=== PATIENT | female | born 1990 | race Hispanic/Latino ===

== ENCOUNTER 2017-12-02 11:57 | Inpatient (IN) | payer MEDICAID ==
--- NOTE | 2017-12-02 12:53 | C.PDOC ---
History Of Present Illness 27 y/o female presents to ED requesting detox from ETOH. Patient reports last use was 4am this morning and denies SI/HI, Hallucinations or any other physical complaints at this time. Time Seen by Provider: 12/02/17 12:16 Chief Complaint (Nursing): Substance Abuse History Per: Patient History/Exam Limitations: no limitations Onset/Duration Of Symptoms: Days Current Symptoms Are (Timing): Still Present Suicide/Self Injury Attempted (Context): None Modifying Factor(s): Alcohol Past Medical History Reviewed: Historical Data, Nursing Documentation, Vital Signs Vital Signs: Last Vital Signs Temp 98.5 F 12/02/17 15:46 Pulse 87 12/02/17 15:46 Resp 18 12/02/17 15:46 BP 133/85 12/02/17 15:46 Pulse Ox 94 L 12/02/17 18:10 - Medical History PMH: Anxiety, Depression, Gastritis Surgical History: Appendectomy Family History: States: No Known Family Hx - Social History Hx Alcohol Use: Yes Hx Substance Use: No - Immunization History Hx Tetanus Toxoid Vaccination: Yes (<10 years) Hx Influenza Vaccination: Yes Hx Pneumococcal Vaccination: Yes Review Of Systems Constitutional: Negative for: Fever, Chills Cardiovascular: Negative for: Chest Pain Respiratory: Negative for: Shortness of Breath Skin: Negative for: Rash Psych: Positive for: Other (substance abuse). Negative for: Suicidal ideation, Withdrawal Physical Exam - Physical Exam Appears: Non-toxic, Other (tearful) Skin: Warm, Dry, No Rash Head: Atraumatic, Normacephalic Eye(s): bilateral: Normal Inspection Oral Mucosa: Moist Cardiovascular: Rhythm Regular Respiratory: Normal Breath Sounds, No Rales, No Rhonchi, No Wheezing Gastrointestinal/Abdominal: Soft, No Tenderness, No Guarding, No Rebound Extremity: Normal ROM, Capillary Refill (<2 seconds) Neurological/Psych: Oriented x3, Normal Speech, Normal Cognition ED Course And Treatment - Laboratory Results Result Diagrams: 12/02/17 12:51 12/02/17 12:51 Lab Interpretation: Normal Urine POC: Negative O2 Sat by Pulse Oximetry: 94 (RA) Pulse Ox Interpretation: Normal Progress Note: Patient is pre screened for detox admission. Case discussed and patient evaluated by crisis who will re-evaluate after 9 PM due to ETOH level. Patient treated with zofran and ativan. sleeping in no distress Reassessment Condition: Unchanged Disposition Doctor Will See Patient In The: Hospital - Disposition Disposition: HOME/ ROUTINE Disposition Time: 19:00 Condition: STABLE Forms: [facility] (Yoruba) - POA Present On Arrival: None - Clinical Impression Clinical Impression: Alcohol abuse - PA / FAMILY CONSULTANT / Resident Statement MD/DO has reviewed & agrees with the documentation as recorded. - Scribe Statement The provider has reviewed the documentation as recorded by the Scribchip Tafoya All medical record entries made by the Tashiibchip were at my direction and personally dictated by me. I have reviewed the chart and agree that the record accurately reflects my personal performance of the history, physical exam, medical decision making, and the department course for this patient. I have also personally directed, reviewed, and agree with the discharge instructions and disposition. Physician Patient Turnover Patient Signed Over To: Daisy Leal Handoff Comments: pending clearance from ETOH
[2017-12-02 12:57] LABS: BASO % 0.7 % (0.0-2.0); EOS % 0.5 % (0.0-4.0); HEMOGLOBIN 14.5 g/dL (11.0-16.0); LYMPH # 4.4 K/uL (1.0-4.3); LYMPH % 63.6 % (20.0-40.0); MEAN CELL VOLUME 93.7 fL (81.0-99.0); MEAN CORPUSCULAR HEMOGLOBIN 32.9 pg (27.0-31.0); MEAN CORPUSCULAR HGB CONC 35.1 g/dL (33.0-37.0); MEAN PLATELET VOLUME 7.2 fL (7.2-11.7); MONO # 0.7 K/uL (0.0-0.8); MONO % 9.6 % (0.0-10.0); NEUT # 1.8 K/uL (1.8-7.0); NEUT % 25.6 % (50.0-75.0); NRBC % 0.1 % (0.0-2.0); RBC 4.42 Mil/uL (3.80-5.20); RED CELL DISTRIBUTION WIDTH 14.2 % (11.5-14.5)
[2017-12-02 13:10] LABS: URINE BILIRUBIN NEGATIVE (NEGATIVE); URINE BLOOD NEGATIVE (NEGATIVE); URINE CLARITY Clear (Clear); URINE COLOR YELLOW (YELLOW); URINE GLUCOSE (UA) NEGATIVE (Normal); URINE LEUKOCYTE ESTERASE NEGATIVE Leu/uL (Negative); URINE PROTEIN NEGATIVE (NEGATIVE); URINE UROBILINOGEN 0.2 mg/dL (0.2-1.0)
[2017-12-02 13:11] LABS: ALB/GLOB RATIO 1.4 (1.0-2.1); ALBUMIN 4.5 g/dL (3.5-5.0); ALT/SGPT 35 U/L (9-52); AST/SGOT 45 U/L (14-36); BLOOD UREA NITROGEN 14 mg/dL (7-17); CALCIUM 9.1 mg/dl (8.6-10.4); GFR NON-AFRICAN AMERICAN > 60
[2017-12-02 13:24] LABS: BARBITURATES, UR NEGATIVE (NEGATIVE); OPIATES, UR NEGATIVE (NEGATIVE); PHENCYCLIDINE, UR NEGATIVE (NEGATIVE)
[2017-12-02 13:41] LABS: BENZODIAZEPINES, UR POSITIVE (NEGATIVE)
--- NOTE | 2017-12-03 06:38 | PCM.BM ---
<Veronika Valero - Last Filed: 12/03/17 06:37> Treatment Plan Problems - Problems identified on initial assessmt Alcohol Dependence Date Initiated: 12/03/17 Time Initiated: 06:37 Assessment reference: NA Status: Active Treatment assets and liabiliti Patient Assests: cooperative, ADL independent, good support system - Milieu Protocol Maintain good personal hygiene: daily Encourage regular showers, daily Remind patient to perform daily oral care, daily Assist patient to perform ADL's Maintain personal safety: every shift Educate patient to report safety concerns to staff, every shift Monitor environment for contraband/sharps Medication safety: Monitor for expected outcome, potential side effects: every shift, Assess barriers to learning: every shift, Assess readiness for medication education: every shift <Meka Lazcano - Last Filed: 12/04/17 14:18> - Diagnosis (1) Alcohol use disorder, severe, dependence Status: Acute Interventions: 12/03/17 14:18 * Assess 7x/week regarding severity of withdrawal * Educate regarding risks, benefits, side effects and alternatives of medications * Use Motivational Interviewing for abstinence * Use CBT for relapse prevention * Medication management for withdrawal symptoms * Encourage medication assisted treatment *
[2017-12-03] MEDS: Multiple Vitamins Tab PO SCH (09:52)
[2017-12-03] MEDS: Aluminum Hydroxide/Magnesium Hydroxide Susp (30 mL) PO PRN (10:18)
[2017-12-03] MEDS: Pantoprazole 40 mg EC Tab PO SCH (10:44)
[2017-12-03] MEDS ORDERED: Vitamins A & D Oint UD Foilpak TOP PRN (16:44)
[2017-12-04] MEDS: Pantoprazole 40 mg EC Tab PO SCH (10:36)
[2017-12-04] MEDS: Multiple Vitamins Tab PO SCH (10:37)
--- NOTE | 2017-12-04 11:28 | PCM.PSYCH ---
Initial Psychiatric Evaluation - Initial Psychiatric Evaluation Type of Admission: Voluntary Legal Status: Capacity Chief Complaint (in patient's own words): "i needed detox" History of Present Illness and Precipitating Events: The patient is seen, chart reviewed and case discussed. Neck signed this is a 27 -year-old female, single with no child, lives with his her around in [place]. She is currently unemployed. The patient has been using alcohol for 10 years and had one detox in the past in [place] 2 years ago. Her longest sobriety was 2 months. She drinks "tons of vodka and 3 glasses of wine" She had blackouts in the past and DT-like symptoms but no seizures. She denies drug and marijuana use and she is not a smoker. Past psych history: He denies but currently she feels depressed and anxious. Medical: He she was diagnosed with high blood pressure but not on medications Family psych history: Denies Current Medications: Active Medications Generic Name Dose Route Start Last Admin Trade Name Freq PRN Reason Stop Dose Admin Acetaminophen 650 mg 12/03/17 12:35 12/03/17 12:50 Tylenol 325mg Tab PO 650 mg Q6 PRN Administration Pain, moderate (4-7) Al Hydrox/Mg Hydrox/Simethicone 30 ml 12/03/17 09:59 12/03/17 10:18 Maalox 30 Ml PO 30 ml Q6 PRN Administration Indigestion / Heartburn Chlordiazepoxide 25 mg 12/03/17 00:22 12/03/17 10:44 Librium PO 25 mg Q4 PRN Administration alcohol withdrawal Chlordiazepoxide 25 mg 12/03/17 10:00 12/04/17 10:37 Librium PO 12/08/17 09:59 25 mg Q6H MANUELA Administration Taper Clonidine HCl 0.1 mg 12/03/17 00:19 12/03/17 02:31 Catapres PO 0.1 mg Q6 PRN Administration withdrawal symptoms Folic Acid 1 mg 12/03/17 10:00 12/04/17 10:37 Folic Acid PO 1 mg DAILY MANUELA Administration Hydroxyzine HCl 50 mg 12/03/17 09:41 12/03/17 12:50 Atarax PO 50 mg Q6H PRN Administration Anxiety Multivitamins 1 tab 12/03/17 10:00 12/04/17 10:37 Hexavitamin PO 1 tab DAILY MANUELA Administration Ondansetron HCl 4 mg 12/03/17 00:21 12/03/17 00:41 Zofran Tab PO 4 mg Q6 PRN Administration Nausea/Vomiting Pantoprazole Sodium 40 mg 12/03/17 10:30 12/04/17 10:36 Protonix Ec Tab PO 40 mg DAILY MANUELA Administration Thiamine HCl 100 mg 12/03/17 10:00 12/04/17 10:38 Vitamin B1 Tab PO 100 mg DAILY MANUELA Administration Trazodone HCl 100 mg 12/03/17 09:41 12/03/17 21:17 Desyrel PO 100 mg HS PRN Administration Insomnia Vitamin A 1 ea 12/03/17 16:44 12/03/17 20:53 Vitamin A & D Oint Ud Foilpak TOP 1 ea BID PRN Administration dry lips Past Psychiatric History - Past Psychiatric History Previous Treatment History: None Pertinent Medical Hx (Current Medical&Sleep Prob, Allergies): Allergies Allergy/AdvReac Type Severity Reaction Status Date / Time No Known Allergies Allergy Verified 11/28/17 11:45 No Known Home Med 12/02/17 Review of Systems - Psychiatric Psychiatric: Abnormal Sleep Pattern, Anhedonia, Anxiety, Depression, Difficulty Concentrating. absent: Hallucinations, Homicidal Ideation, Paranoia, Suicidal Ideation Mental Status Examination - Personal Presentation Personal Presentation: Looks stated age - Affect Affect: Constricted - Motor Activity Motor Activity: Calm - Reliability in Providing Information Reliability in Providing Information: Good - Speech Speech: Organized - Mood Mood: Depressed, Anxious - Formal Thought Process Formal Thought Process: No Impairment - Cognitive Functions Orientation: Person, Place, Situation, Time Sensorium: Alert Attention/Concentration: Easily distracted Estimate of Intelligence: Average Judgement: Intact, as evidence by: Insight regarding need for hospitalization Memory: Recent intact, as evidence by: Ability to recall events of the day, Remote intact, as evidenced by: Abilit to recall sig. life events - Risk Risk: Withdrawal, Diminished functioning - Strength & Assets Inventory Strength & Assets Inventory: Family support, Cooperative - Limitations Limitations: Other DSM 5 DX - DSM 5 DSM 5 Diagnosis: Alcohol withdrawal Alcohol use disorder, severe Depressive disorder, unspecified Anxiety disorder, unspecified - Recommended/Plan of Treatment Treatment Recommendations and Plan of Treatment: Start librium taper Naltrexone for cravings Remeron for insomnia and depressive sxs gabapentin if needed As need medications All risks, benefits and alternatives of the meds discussed, and the pt agreed and understood. Attend groups and activities Individual therapy daily, incl. [place] and CBT Psychoeducation and support daily Encourage compliance with meds and after care Refer to outpatient program Teach healthy lifestyle methods, i.e. diet, exercise, meditation Smoking cessation and patch if needed 32 min Projected ELOS: 4-5 days Prognosis: good w insurance - Smoking Cessation Smoking Cessation Initiated: No
[2017-12-04] MEDS ORDERED: Naltrexone 25 MG TAB PO SCH (11:30)
--- NOTE | 2017-12-04 11:37 | PCM.PYCHPN ---
Psychiatric Progress Note - Psychiatric Progress Note Patient seen today, length of contact: 15 min Patient Chief Complaint: "I don't feel well yet" Problems Identified/Issues Discussed: The pt is seen, chart reviewed, case discussed with staff. The pt is compliant with medications and reports no side-effects. Symptoms are improving but needs more time to stabilize. Pt attends groups and activities. Support given, psycho-education provided. After care discussed. Medication Change: Yes (detox changes daily) Medical Record Reviewed: Yes Mental Status Examination - Cognitive Function Orientation: Person, Place, Situation, Time Memory: Intact Attention: WNL Concentration: WNL Association: WNL Fund of Knowledge: WN - Mood Mood: Depressed, Anxious - Affect Affect: Constricted - Speech Speech: Appropriate - Formal Thought Process Formal Thought Process: No Impairment - Suicidal Ideation Suicidal Ideation: No - Homicidal Ideation Homicidal Ideation: No Goal/Treatment Plan - Goal/Treatment Plan Need for Continued Stay: Discharge may exacerbated symptoms, Severe functional impairment Progress Toward Problem(s) and Goals/Treatment Plan: librium taper Naltrexone for cravings Remeron for insomnia and depressive sxs gabapentin if needed As need medications All risks, benefits and alternatives of the meds discussed, and the pt agreed and understood. Attend groups and activities Individual therapy daily, incl. [place] and CBT Psychoeducation and support daily Encourage compliance with meds and after care Refer to outpatient program Teach healthy lifestyle methods, i.e. diet, exercise, meditation Smoking cessation and patch if needed Estimated Date of D/C: 12/07/17
--- NOTE | 2017-12-04 11:37 | CP.PCM.PCO ---
Physician Communication Note - Physician Communication Note Physician Communication Note: PATIENT'S INTAKE NOTE FOR 12/03 IS ENTERED INTO EMR ON 12/04
[2017-12-04] MEDS: Aluminum Hydroxide/Magnesium Hydroxide Susp (30 mL) PO PRN (14:14)
[2017-12-05] MEDS: Multiple Vitamins Tab PO SCH (09:30)
[2017-12-05] MEDS: Pantoprazole 40 mg EC Tab PO SCH (09:30)
[2017-12-05] MEDS: Naltrexone 50 MG TAB PO SCH (09:33)
--- NOTE | 2017-12-05 11:17 | PCM.PYCHPN ---
Psychiatric Progress Note - Psychiatric Progress Note Patient seen today, length of contact: 15 min Patient Chief Complaint: "I can't sleep" Problems Identified/Issues Discussed: The pt is seen, chart reviewed, case discussed with staff. Support and psychoeducation given, CBT and MA used briefly No new symptoms reported, improving slowly and needs more time She is so anxious that she wanted to leave Insomnia is improving actually Librium taper is adjusted bc she feels over-sedated at times No SEs from medications, risks discussed. After care discussed Medication Change: Yes (detox changes daily) Medical Record Reviewed: Yes Mental Status Examination - Cognitive Function Orientation: Person, Place, Situation, Time Memory: Intact Attention: WNL Concentration: WNL Association: WNL Fund of Knowledge: WNL - Mood Mood: Depressed, Anxious - Affect Affect: Constricted - Speech Speech: Appropriate - Formal Thought Process Formal Thought Process: No Impairment - Suicidal Ideation Suicidal Ideation: No - Homicidal Ideation Homicidal Ideation: No Goal/Treatment Plan - Goal/Treatment Plan Need for Continued Stay: Discharge may exacerbated symptoms, Severe functional impairment Progress Toward Problem(s) and Goals/Treatment Plan: librium taper Naltrexone for cravings Remeron for insomnia and depressive sxs gabapentin if needed As need medications All risks, benefits and alternatives of the meds discussed, and the pt agreed and understood. Attend groups and activities Individual therapy daily, incl. [place] and CBT Psychoeducation and support daily Encourage compliance with meds and after care Refer to outpatient program Teach healthy lifestyle methods, i.e. diet, exercise, meditation Smoking cessation and patch if needed Estimated Date of D/C: 12/06/17 If changed, why: she wants to be home earlier
[2017-12-06 08:20] VITALS: BP 125/81; PULSE 81; RESP 18; TEMP 97.5; O2SAT 99
[2017-12-06] MEDS: Pantoprazole 40 mg EC Tab PO SCH (09:11)
[2017-12-06] MEDS: Multiple Vitamins Tab PO SCH (09:11)
[2017-12-06] MEDS: Naltrexone 50 MG TAB PO SCH (09:11)
--- NOTE | 2017-12-06 09:29 | PCM.PYCHDC ---
Mental Status Examination - Mental Status Examination Orientation: Person Discharge Summary - Discharge Note Consultations:: List each consultation separately and include: 1. Reason for request. 2. Findings. 3. Follow-up Summary of Hospital Course include:: 1. Description of specific treatment plan utilized for patients during their course of treatmen. 2. Summarize the time- course for resolution of acute symptoms and/or regressed behaviors. 3. Describe issues identified and worked on during hospitalization. 4. Describe medication utilized. 5. Describe medical problems identified and treated. 6. Reassessment of suicide risk Summary of Hospital Course: The patient is seen, chart reviewed and case discussed. Neck signed this is a 27 -year-old female, single with no child, lives with his her around in [place]. She is currently unemployed. The patient has been using alcohol for 10 years and had one detox in the past in [place] 2 years ago. Her longest sobriety was 2 months. She drinks "tons of vodka and 3 glasses of wine" She had blackouts in the past and DT-like symptoms but no seizures. She denies drug and marijuana use and she is not a smoker. Past psych history: He denies but currently she feels depressed and anxious. Medical: He she was diagnosed with high blood pressure but not on medications Family psych history: Denies She will [facility] to [facility] on the [facility] - Diagnosis (1) Alcohol use disorder, severe, dependence Current Visit: Yes Status: Acute - Final Diagnosis (DSM 5) Condition upon Discharge: STABLE Disposition: HOME/ ROUTINE Follow-up Treatment Plan: librium taper Naltrexone for cravings Remeron for insomnia and depressive sxs gabapentin if needed As need medications All risks, benefits and alternatives of the meds discussed, and the pt agreed and understood. Attend groups and activities Individual therapy daily, incl. [place] and CBT Psychoeducation and support daily Encourage compliance with meds and after care Refer to outpatient program Teach healthy lifestyle methods, i.e. diet, exercise, meditation Smoking cessation and patch if needed Prescriptions/Medication Reconciliation: Naltrexone [Revia] 50 mg PO DAILY #30 tab Pantoprazole [Protonix EC Tab] 40 mg PO DAILY #30 ect traZODone [Desyrel] 100 mg PO HS PRN #30 tab PRN Reason: Insomnia
== END 2017-12-06 09:50 | disposition home or self-care (01) | DRG 751 ==
LOC: C.ER 11:57 → C.7D 22:53
PROC: HZ2ZZZZ Detoxification Services for Substance Abuse Treatment (ICD-10-PCS; principal; 2017-12-02)
PROC: HZ52ZZZ Individual Psychotherapy for Substance Abuse Treatment, Cognitive-Behavioral (ICD-10-PCS; 2017-12-02)
PROC: HZ59ZZZ Individual Psychotherapy for Substance Abuse Treatment, Supportive (ICD-10-PCS; 2017-12-02)
PROC: HZ56ZZZ Individual Psychotherapy for Substance Abuse Treatment, Psychoeducation (ICD-10-PCS; 2017-12-02)
PROC: HZ42ZZZ Group Counseling for Substance Abuse Treatment, Cognitive-Behavioral (ICD-10-PCS; 2017-12-02)
PROC: HZ46ZZZ Group Counseling for Substance Abuse Treatment, Psychoeducation (ICD-10-PCS; 2017-12-02)
PROC: GZHZZZZ Group Psychotherapy (ICD-10-PCS; 2017-12-02)
PROC: GZ58ZZZ Individual Psychotherapy, Cognitive-Behavioral (ICD-10-PCS; 2017-12-02)
PROC: GZ56ZZZ Individual Psychotherapy, Supportive (ICD-10-PCS; 2017-12-02)
DX: F10.230 Alcohol dependence with withdrawal, uncomplicated (principal); Y90.8 Blood alcohol level of 240 mg/100 ml or more; F32.9 Major depressive disorder, single episode, unspecified; F41.9 Anxiety disorder, unspecified; G47.00 Insomnia, unspecified

== ENCOUNTER 2018-06-24 22:50 | Inpatient (IN) | payer MEDICAID ==
--- NOTE | 2018-06-24 23:53 | C.PDOC ---
History Of Present Illness 28 year old female presents to the ED requesting alcohol detox. Patient reports she has been drinking a lot lately her last drink was today [employer]. Patient denies SI/HI, hallucinations, injury, fall, trauma. Time Seen by Provider: 06/24/18 23:53 Chief Complaint (Nursing): Substance Abuse History Per: Patient History/Exam Limitations: intoxication Onset/Duration Of Symptoms: Days Current Symptoms Are (Timing): Still Present Suicide/Self Injury Attempted (Context): None Modifying Factor(s): Alcohol Associated Symptoms: denies: Depression, Suicidal Thoughts, Suicidal Plan Recent travel outside of the [place]: No Additional History Per: Patient Past Medical History Reviewed: Historical Data, Nursing Documentation, Vital Signs Vital Signs: Last Vital Signs Temp 98.4 F 06/24/18 23:10 Pulse 114 H 06/24/18 23:10 Resp 20 06/24/18 23:10 BP 145/103 H 06/24/18 23:10 Pulse Ox 97 06/24/18 23:10 - Medical History PMH: Anxiety, Depression, Gastritis, HTN (per pt) Denies: Diabetes, Hepatitis, HIV, Chronic Kidney Disease, Seizures, Sexually Transmitted Disease Surgical History: Appendectomy - [facility] DETOXIFICATION SERVICES FOR SUBSTANCE ABUSE TREATMENT (12/02/17) GROUP TENNIS CAMP INSTRUCTOR FOR SUBSTANCE ABUSE TREATMENT, PSYCHOEDUCATION (12/02/17) GROUP TENNIS CAMP INSTRUCTOR FOR SUBSTANCE ABUSE, COGNITIVE BEHAVIORAL (12/02/17) GROUP PSYCHOTHERAPY (05/25/18) INDIV PSYCHOTHERAPY FOR SUBSTANCE ABUSE TREATMENT, SUPPORT (12/02/17) INDIV PSYCHOTHERAPY FOR SUBSTANCE ABUSE, COGNITIV BEHAVIORAL (12/02/17) INDIV PSYCHOTHERAPY FOR SUBSTANCE ABUSE, MOTIVATION ENHANCE (05/25/18) INDIV PSYCHOTHERAPY FOR SUBSTANCE ABUSE, PSYCHOEDUCATION (12/02/17) INDIVIDUAL PSYCHOTHERAPY, COGNITIVE-BEHAVIORAL (12/02/17) INDIVIDUAL PSYCHOTHERAPY, SUPPORTIVE (05/25/18) REPAIR LEFT LOWER ARM SKIN, EXTERNAL APPROACH (05/25/18) Family History: States: Unknown Family Hx - Social History Hx Alcohol Use: Yes Hx Substance Use: No - Immunization History Hx Tetanus Toxoid Vaccination: Yes (<10 years) Hx Influenza Vaccination: Yes Hx Pneumococcal Vaccination: Yes Review Of Systems Constitutional: Negative for: Fever, Chills Cardiovascular: Negative for: Chest Pain Respiratory: Negative for: Shortness of Breath Gastrointestinal: Negative for: Nausea, Vomiting, Abdominal Pain Skin: Negative for: Rash Psych: Negative for: Depression, Suicidal ideation Physical Exam - Physical Exam Appears: Non-toxic, No Acute Distress Skin: Warm, Dry Head: Normacephalic Eye(s): bilateral: Normal Inspection Neck: Supple Chest: Symmetrical Cardiovascular: Rhythm Regular Respiratory: No Rales, No Rhonchi, No Wheezing Gastrointestinal/Abdominal: Soft, No Tenderness, No Guarding, No Rebound Extremity: Bilateral: Atraumatic, Normal Color And Temperature, Normal ROM Neurological/Psych: Oriented x3, Normal Speech, Normal Cognition Gait: Steady ED Course And Treatment - Laboratory Results Result Diagrams: 06/25/18 00:15 06/25/18 00:15 O2 Sat by Pulse Oximetry: 97 (ON RA) Pulse Ox Interpretation: Normal Progress Note: Plan: - Labs. - UA. - Crisis eval Disposition Discussed With : Jennifer Castaneda Comment: accepted the pt on his service and took over the care at 2:56 AM Doctor Will See Patient In The: Hospital Counseled Patient/Family Regarding: Studies Performed, Diagnosis - Disposition Disposition: HOSPITALIZED Disposition Time: 23:53 Condition: FAIR Forms: [facility] ([place]) - POA Present On Arrival: Poor Glycemic Control - Clinical Impression Clinical Impression: Alcohol use disorder, severe, dependence - Scribe Statement The provider has reviewed the documentation as recorded by the Scribe Cesar Bunch All medical record entries made by the Scribe were at my direction and personally dictated by me. I have reviewed the chart and agree that the record accurately reflects my personal performance of the history, physical exam, medical decision making, and the department course for this patient. I have also personally directed, reviewed, and agree with the discharge instructions and d isposition. Decision To Admit - Pt Status Changed To: Hospital Disposition Of: Inpatient - Admit Certification Admit to Inpatient:: After my assessment, the patient will require hospi talization for at least two midnights. This is because of the severity of symptoms shown, intensity of services needed, and/or the medical risk in this patient being treated as an outpatient. - InPatient: Physician Admission Certification: I certify that this patient requires 2 or more midnights of care for the following reason:: After my assessment, the pat ient will require hospitalization for at least two midnights. This is because of the severity of symptoms shown, intensity of services needed, and/or the medical risk in this patient being treated as an outpatient. - . Bed Request Type: Detox Admitting Physician: Jennifer Castaneda Patient Diagnosis: Alcohol use disorder, severe, dependence
[2018-06-25 00:24] LABS: BASO # 0.1 K/uL (0.0-0.2); BASO % 0.7 % (0.0-2.0); EOS # 0.2 K/uL (0.0-0.7); EOS % 3.4 % (0.0-4.0); HEMOGLOBIN 14.2 g/dL (11.0-16.0); LYMPH # 4.4 K/uL (1.0-4.3); LYMPH % 61.6 % (20.0-40.0); MEAN CELL VOLUME 91.1 fL (81.0-99.0); MEAN CORPUSCULAR HEMOGLOBIN 30.5 pg (27.0-31.0); MEAN CORPUSCULAR HGB CONC 33.5 g/dL (33.0-37.0); MEAN PLATELET VOLUME 8.3 fL (7.2-11.7); MONO # 0.5 K/uL (0.0-0.8); MONO % 6.5 % (0.0-10.0); NEUT % 27.8 % (50.0-75.0); NRBC % 0.1 % (0.0-2.0); RBC 4.66 Mil/uL (3.80-5.20); RED CELL DISTRIBUTION WIDTH 15.6 % (11.5-14.5); WHITE BLOOD COUNT 7.1 K/uL (4.8-10.8)
[2018-06-25 00:34] LABS: SQUAMOUS EPITHIAL < 1 /hpf (0-5); URINE BILIRUBIN NEGATIVE (NEGATIVE); URINE BLOOD NEGATIVE (NEGATIVE); URINE CLARITY Clear (Clear); URINE COLOR Colorless (YELLOW); URINE GLUCOSE (UA) NORMAL (Normal); URINE LEUKOCYTE ESTERASE NEG Leu/uL (Negative); URINE PROTEIN NEGATIVE (NEGATIVE); URINE UROBILINOGEN NORMAL mg/dL (0.2-1.0)
[2018-06-25 00:36] LABS: HCG,QUALITATIVE URINE NEGATIVE (NEGATIVE)
[2018-06-25 00:52] LABS: ALB/GLOB RATIO 1.5 (1.0-2.1); ALBUMIN 4.3 g/dL (3.5-5.0); ALT/SGPT 25 U/L (9-52); AST/SGOT 44 U/L (14-36); BLOOD UREA NITROGEN 14 mg/dL (7-17); CALCIUM 8.6 mg/dl (8.6-10.4); GFR NON-AFRICAN AMERICAN > 60
[2018-06-25 01:33] LABS: BARBITURATES, UR NEGATIVE (NEGATIVE); OPIATES, UR NEGATIVE (NEGATIVE); PHENCYCLIDINE, UR NEGATIVE (NEGATIVE)
[2018-06-25 01:43] LABS: BENZODIAZEPINES, UR POSITIVE (NEGATIVE)
--- NOTE | 2018-06-25 05:37 | PCM.BM ---
Treatment Plan Problems - Problems identified on initial assessmt Anxiety r/t substance use Date Initiated: 06/25/18 Time Initiated: 05:36 Assessment reference: NA Status: Active Ineffective Family Coping: Compromised Date Initiated: 06/25/18 Time Initiated: 05:36 Assessment reference: NA Status: Active Treatment assets and liabiliti Patient Assests: cooperative, educated, ADL independent, good support system, cognitively intact Patient Liabilities: substance abuse - Milieu Protocol Maintain good personal hygiene: daily Encourage regular showers, daily Remind patient to perform daily oral care, daily Assist patient to perform ADL's Maintain personal safety: every shift Educate patient to report safety concerns to staff, every shift Monitor environment for contraband/sharps Medication safety: Monitor for expected outcome, potential side effects: every shift, Assess barriers to learning: every shift, Assess readiness for medication education: every shift
--- NOTE | 2018-06-25 10:07 | PCM.PSYCH ---
Initial Psychiatric Evaluation - Initial Psychiatric Evaluation Type of Admission: Voluntary Legal Status: Capacity Chief Complaint (in patient's own words): "I am withdrawing very bad" History of Present Illness and Precipitating Events: The patient is seen, chart reviewed and case discussed. This is a 28-year-old female, single with no child, lives alone in [place] but yesterday she said [place]. She is currently unemployed and claims her family helps her. She is known from a previous detox admission. The patient has been using alcohol for more than 10 years and had one detox in the past in [place] 3 years ago. Her longest sobriety was 2 months. She says she drinks "lots of vodka and some wine ... I don't know how much, I start in the morning." She had blackouts in the past and DT-like symptoms but no seizures. She denies drug and marijuana use and she is not a smoker. Past psych history: Severe anxiety and some depression. She was given Xanax which she overused. Dose? Medical: HTN but not compliant with meds Family psych history: Denies Current Medications: Active Medications Generic Name Dose Route Start Last Admin Trade Name Freq PRN Reason Stop Dose Admin Chlordiazepoxide 25 mg 06/25/18 10:00 Librium PO 06/30/18 09:59 Q6H MANUELA Taper Chlordiazepoxide 25 mg 06/25/18 09:01 Librium PO Q4H PRN Alcohol Withdrawal Clonidine HCl 0.1 mg 06/25/18 04:49 Catapres PO Q6 PRN Symptoms of alcohol withdrawl Folic Acid 1 mg 06/25/18 10:00 Folic Acid PO DAILY [facility] Hydroxyzine HCl 25 mg 06/25/18 04:49 06/25/18 05:11 Atarax PO 25 mg Q6 PRN Administration Anxiety Ibuprofen 600 mg 06/25/18 04:50 Motrin Tab PO Q6 PRN Pain, moderate (4-7) Multivitamins 1 tab 06/25/18 10:00 Hexavitamin PO DAILY [facility] Thiamine HCl 100 mg 06/25/18 10:00 Vitamin B1 Tab PO DAILY MANUELA Past Psychiatric History - Past Psychiatric History Previous Treatment History: Intensive Outpatient Pertinent Medical Hx (Current Medical&Sleep Prob, Allergies): Allergies Allergy/AdvReac Type Severity Reaction Status Date / Time No Known Allergies Allergy Verified 06/24/18 23:16 traZODone [Desyrel] 100 mg PO HS 30 Days #30 tab 05/28/18 Alprazolam [Xanax] 0.5 mg PO HS 06/24/18 Review of Systems - Psychiatric Psychiatric: Abnormal Sleep Pattern, Anhedonia, Anxiety, Change in Appetite, Depression, Difficulty Concentrating, Irritability. absent: Hallucinations, Homicidal Ideation, Paranoia, Suicidal Ideation Mental Status Examination - Personal Presentation Personal Presentation: Looks older than stated age (unkempt, shaky, unsteady) - Affect Affect: Constricted - Motor Activity Motor Activity: Calm - Reliability in Providing Information Reliability in Providing Information: Fair - Speech Speech: Organized - Mood Mood: Depressed, Anxious - Formal Thought Process Formal Thought Process: No Impairment - Cognitive Functions Orientation: Person, Place, Situation, Time Sensorium: Alert Attention/Concentration: Easily distracted Abstract Thinking: Allgood Estimate of Intelligence: Average Judgement: Intact, as evidence by: Insight regarding need for hospitalization Memory: Recent intact, as evidence by: Ability to recall events of the day, Remote impaired as evidenced by: Inability to recall sig life events - Risk Risk: Seizure, Withdrawal, Diminished functioning - Strength & Assets Inventory Strength & Assets Inventory: Cooperative - Limitations Limitations: Living alone DSM 5 DX - DSM 5 DSM 5 Diagnosis: Alcohol withdrawal Alcohol use disorder, severe Sedative hypnotic use d/o - severe Depressive disorder, unspecified BECKA - Recommended/Plan of Treatment Treatment Recommendations and Plan of Treatment: Start librium taper Naltrexone for cravings - she used before Remeron for insomnia and depressive sxs gabapentin if needed As need medications All risks, benefits and alternatives of the meds discussed, and the pt agreed and understood. Attend groups and activities Individual therapy daily, incl. ID and CBT Psychoeducation and support daily Encourage compliance with meds and after care Refer to outpatient program Teach healthy lifestyle methods, i.e. diet, exercise, meditation Smoking cessation and patch if needed 35 min Projected ELOS: 5 days Prognosis: good w treatment Discharge Plan and Discharge Criteria: Rehab - Smoking Cessation Smoking Cessation Initiated: Yes
[2018-06-25] MEDS: Multiple Vitamins Tab PO SCH (10:18)
[2018-06-26] MEDS ORDERED: Aluminum Hydroxide/Magnesium Hydroxide Susp (30 mL) PO PRN (00:39)
--- NOTE | 2018-06-26 07:51 | PCM.PYCHPN ---
Psychiatric Progress Note - Psychiatric Progress Note Patient seen today, length of contact: 15 min Medication Change: Yes Medical Record Reviewed: Yes Mental Status Examination - Cognitive Function Orientation: Person, Place, Situation, Time Memory: Intact Attention: WNL Concentration: Poor Association: WNL Fund of Knowledge: Poor - Mood Mood: Depressed, Anxious - Affect Affect: Constricted - Formal Thought Process Formal Thought Process: No Impairment Goal/Treatment Plan - Goal/Treatment Plan Need for Continued Stay: Remain at risks for inpatient hospitalization Progress Toward Problem(s) and Goals/Treatment Plan: Alcohol withdrawal Alcohol use disorder, severe Sedative hypnotic use d/o - severe Depressive disorder, unspecified BECKA Start librium taper Naltrexone for cravings - she used before Remeron for insomnia and depressive sxs gabapentin if needed As need medications All risks, benefits and alternatives of the meds discussed, and the pt agreed and understood. Attend groups and activities Individual therapy daily, incl. SD and CBT Psychoeducation and support daily Encourage compliance with meds and after care Refer to outpatient program Teach healthy lifestyle methods, i.e. diet, exercise, meditation Smoking cessation and patch if needed
[2018-06-26] MEDS: Multiple Vitamins Tab PO SCH (09:57)
--- NOTE | 2018-06-26 21:26 | RAD ---
Chest x-ray two views HISTORY: Rehab placement. Comparison: None available. Findings: Mild venous congestion. Heart size within normal limits. Right hilar prominence. Suggestion of a few chronic right rib deformities. Impression: Mild venous congestion. Right hilar prominence. Suggestion of a few chronic right rib deformities.
[2018-06-27] MEDS: Multiple Vitamins Tab PO SCH (09:05)
--- NOTE | 2018-06-27 19:07 | CP.PCM.CON ---
History of Present Illness - History of Present Illness History of Present Illness: Asked by Dr. 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 , LMP 04/2016, at which time Nexplanon was inserted, with no vaginal bleeding since until last night. Onset of vaginal bleeding, uses "toilet paper"; associated with cramps, pain scale 6/10. Not taken any pain meds. HPI: admitted for detox from alcohol. Consumes Vodka ..."usually 1 bottle (?32oz) a day, with fireball, and wine" - used as recent as day of admission. Currently "I don't want to blow out my liver. I feel good. I'm not going to use any more. I have to do better. I want to have a baby". Last detox 01/2018. P Ob: 2008, VTOP, 8 weeks, with D&C. 2014, Spont ab, approx 16weeks - "my body went into labor. I didn't even know I was "; no D&C. 2016, Spont ab, 1st trimester - "the baby inside of me"; desired ; with D&C. No complications. 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 Denies h/o STIs or abnormal Pap. Last coil winder hand evaluation with Pap, 2016, local clinic - Implanon inserted. Monogamous; has been having unprotected intercourse with current sexual partner other since being reunited with him "recently". They had broken up after terminated 2016. PMH: denies PSH: D&C x 2, 2007, 2016. Age 12, lap oswaldo'y. NKDA Meds: see medication list Soc Hx: denies tobacco or other illicit drug use. EtOH use/history: as above, since age 11. 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 Monogamous; partner drinks Myla daily ... "I can't just sit there and watch him drink. I drink to keep him company" Fam Hx: Mother alive 52 y.o. Father alive 55 y.o., both, no med issues. Review of Systems - Review of Systems All systems: reviewed and no additional remarkable complaints except - Genitourinary Genitourinary: As Per HPI - Reproductive: Female Reproductive:Female: As Per HPI Past Patient History - Tetanus Immunizations Tetanus Immunization: Unknown - Past Medical History & Family History Past Medical History?: Yes Past Family History: Reviewed and not pertinent - Past Social History Smoking Status: Never Smoked Alcohol: > 2 Drinks/Day Home Situation {Lives}: Friends - CARDIAC Hx Cardiac Disorders: No - PULMONARY Hx Respiratory Disorders: No Hx Tuberculosis: No - NEUROLOGICAL Hx Neurological Disorder: No Hx Seizures: No - HEENT Hx HEENT Problems: No - RENAL Hx Chronic Kidney Disease: No - ENDOCRINE/METABOLIC Hx Endocrine Disorders: No - HEMATOLOGICAL/ONCOLOGICAL Hx Blood Disorders: No Hx Human Immunodeficiency Virus (HIV): No - INTEGUMENTARY Hx Dermatological Problems: No - MUSCULOSKELETAL/RHEUMATOLOGICAL Hx Musculoskeletal Disorders: No Hx Falls: No (pt denied) - GASTROINTESTINAL Hx Gastritis: Yes Other/Comment: Appendicitis - age 12 - GENITOURINARY/GYNECOLOGICAL Hx Genitourinary Disorders: No Hx Sexually Transmitted Disorders: No LMP:: 04/2016 : 3 Para: 0 Termination of : 3 - PSYCHIATRIC Hx Substance Use: Yes - SURGICAL HISTORY Hx Appendectomy: Yes (Age 12, laparoscopic) Hx Dilation and Curettage: Yes (2007, 2016) - ANESTHESIA Hx Anesthesia: Yes Hx Anesthesia Reactions: No Hx Malignant Hyperthermia: No Meds Allergies/Adverse Reactions: Allergies Allergy/AdvReac Type Severity Reaction Status Date / Time No Known Allergies Allergy Verified 06/24/18 23:16 - Medications Medications: Current Medications Al Hydrox/Mg Hydrox/Simethicone (Maalox 30 Ml) 30 ml PO Q6 PRN PRN Reason: Indigestion / Heartburn Last Admin: 06/26/18 00:51 Dose: 30 ml Chlordiazepoxide (Librium) 25 mg PO Q8H MANUELA; Taper Stop: 06/30/18 09:59 Last Admin: 06/27/18 17:35 Dose: 25 mg Chlordiazepoxide (Librium) 25 mg PO Q4H PRN PRN Reason: Alcohol Withdrawal Last Admin: 06/26/18 00:50 Dose: 25 mg Clonidine HCl (Catapres) 0.1 mg PO Q6 PRN PRN Reason: Symptoms of alcohol withdrawl Last Admin: 06/26/18 17:07 Dose: 0.1 mg Dicyclomine HCl (Bentyl) 10 mg PO Q6 PRN PRN Reason: Muscle spasm Last Admin: 06/26/18 00:50 Dose: 10 mg Fluoxetine HCl (Prozac) 20 mg PO DAILY [facility] Last Admin: 06/27/18 09:05 Dose: 20 mg Folic Acid (Folic Acid) 1 mg PO DAILY [facility] Last Admin: 06/27/18 09:05 Dose: 1 mg Hydroxyzine HCl (Atarax) 25 mg PO Q6 PRN PRN Reason: Anxiety Last Admin: 06/27/18 14:29 Dose: 25 mg Ibuprofen (Motrin Tab) 600 mg PO Q6 PRN PRN Reason: Pain, moderate (4-7) Last Admin: 06/27/18 18:34 Dose: 600 mg Mirtazapine (Remeron) 15 mg PO [facility] Last Admin: 06/26/18 21:21 Dose: 15 mg Multivitamins (Hexavitamin) 1 tab PO DAILY [facility] Last Admin: 06/27/18 09:05 Dose: 1 tab Thiamine HCl (Vitamin B1 Tab) 100 mg PO DAILY [facility] Last Admin: 06/27/18 09:05 Dose: 100 mg Trazodone HCl (Desyrel) 100 mg PO [facility] Last Admin: 06/26/18 21:20 Dose: 100 mg Physical Exam - Constitutional Appears: Well, No Acute Distress - Head Exam Head Exam: NORMAL INSPECTION, NORMOCEPHALIC - Eye Exam Eye Exam: Normal appearance - Neck Exam Neck exam: Positive for: Full Rom - Respiratory Exam Respiratory Exam: NORMAL BREATHING PATTERN - Cardiovascular Exam Cardiovascular Exam: REGULAR RHYTHM - GI/Abdominal Exam GI & Abdominal Exam: Soft - Exam Speculum exam: Vaginal Bleeding (Minimal amount of dark red blood. Cervix - grossly normal) Bimanual exam: NORMAL BIMANUAL EXAM - Extremities Exam Extremities exam: Positive for: full ROM - Back Exam Back exam: NORMAL INSPECTION - Neurological Exam Neurological exam: Alert, Normal Gait, Oriented x3 - Psychiatric Exam Psychiatric exam: Normal Affect, Normal Mood - Skin Skin Exam: Dry, Intact, Normal Color, Warm Results - Vital Signs Recent Vital Signs: Last Vital Signs Temp 97.5 F L 06/27/18 17:29 Pulse 86 06/27/18 17:29 Resp 16 06/27/18 17:29 BP 127/88 06/27/18 17:29 Pulse Ox 99 06/27/18 17:29 - Labs Result Diagrams: 06/25/18 00:15 06/25/18 00:15 Assessment & Plan - Assessment and Plan (Free Text) Assessment: Labs reviewed by me personally 28 y.o. P0030, Implanon inserted with new onset vaginal spotting. Not bleeding heavily. Patient requesting and testing for STIs. Patient advised, results of STI screening will take 48 to 72 hours from the time it is sent out. Vaginal spotting most likely due to the stress of ETOH detox. Patient encouraged to stick to the decisions she has made for her new life. Patient is clinically stable. Plan: 1) Urine collection for GC/Chlamydia 2) Urine test 3) Tylenol, or Motrin, as needed, for cramps 3) Upon discharge, obtain coil winder hand provider for continuing well woman care Thank you for the pleasure of this consultation - Date & Time Date: 06/27/18 Time: 19:18
[2018-06-28] MEDS: Multiple Vitamins Tab PO SCH (09:44)
--- NOTE | 2018-06-28 09:48 | PCM.PYCHDC ---
Mental Status Examination - Mental Status Examination Orientation: Person, Place, Situation, Time Memory: Intact Mood: Neutral Affect: Constricted Speech: Soft Attention: WNL Concentration: WNL Association: WNL Fund of Knowledge: WNL Formal Thought Process: No Impairment Description of patient's judgement and insight: good. fair Psychotic Thoughts and Behaviors: denies any AVH Suicidal Ideation: No Current Homicidal Ideation?: No Discharge Summary - Discharge Note Reason for Hospitalization: This is a 28-year-old female, single with no child, lives alone in [place] but yesterday she said [place]. She is currently unemployed and claims her family helps her. She is known from a previous detox admission. The patient has been using alcohol for more than 10 years and had one detox in the past in [place] 3 years ago. Her longest sobriety was 2 months. She says she drinks "lots of vodka and some wine ... I don't know how much, I start in the morning." She had blackouts in the past and DT-like symptoms but no seizures. She denies drug and marijuana use and she is not a smoker. Past psych history: Severe anxiety and some depression. She was given Xanax which she overused. Dose? Consultations:: List each consultation separately and include: 1. Reason for request. 2. Findings. 3. Follow-up Summary of Hospital Course include:: 1. Description of specific treatment plan utilized for patients during their course of treatmen. 2. Summarize the time- course for resolution of acute symptoms and/or regressed behaviors. 3. Describe issues identified and worked on during hospitalization. 4. Describe medication utilized. 5. Describe medical problems identified and treated. 6. Reassessment of suicide risk - Final Diagnosis (DSM 5) Condition upon Discharge: FAIR DSM 5: Alcohol withdrawal Alcohol use disorder, severe Sedative hypnotic use d/o - severe Depressive disorder, unspecified BECKA Disposition: HOME/ ROUTINE Follow-up Treatment Plan: Alcohol withdrawal Alcohol use disorder, severe Sedative hypnotic use d/o - severe Depressive disorder, unspecified BECKA Start librium taper Naltrexone for cravings - she used before Remeron for insomnia and depressive sxs gabapentin if needed As need medications All risks, benefits and alternatives of the meds discussed, and the pt agreed and understood. Attend groups and activities Individual therapy daily, incl. IN and CBT Psychoeducation and support daily Encourage compliance with meds and after care Refer to outpatient program Teach healthy lifestyle methods, i.e. diet, exercise, meditation Smoking cessation and patch if needed Prescriptions/Medication Reconciliation: FLUoxetine [Prozac] 20 mg PO DAILY #30 cap Gabapentin [Neurontin] 100 mg PO TID #90 cap Mirtazapine [Remeron] 15 mg PO HS #30 tab
[2018-06-28 10:21] VITALS: BP 137/94; PULSE 77; RESP 18; TEMP 98; O2SAT 100
== END 2018-06-28 10:10 | disposition home or self-care (01) | DRG 751 ==
LOC: C.ER 22:50 → C.7D 06-25 04:04
PROVIDERS: ADMIT Psychiatry & Neurology Psychiatry; ATTEND Psychiatry & Neurology Psychiatry
PROC: HZ2ZZZZ Detoxification Services for Substance Abuse Treatment (ICD-10-PCS; principal; 2018-06-25)
PROC: HZ52ZZZ Individual Psychotherapy for Substance Abuse Treatment, Cognitive-Behavioral (ICD-10-PCS; 2018-06-25)
PROC: HZ59ZZZ Individual Psychotherapy for Substance Abuse Treatment, Supportive (ICD-10-PCS; 2018-06-25)
PROC: HZ56ZZZ Individual Psychotherapy for Substance Abuse Treatment, Psychoeducation (ICD-10-PCS; 2018-06-25)
PROC: HZ42ZZZ Group Counseling for Substance Abuse Treatment, Cognitive-Behavioral (ICD-10-PCS; 2018-06-25)
PROC: HZ46ZZZ Group Counseling for Substance Abuse Treatment, Psychoeducation (ICD-10-PCS; 2018-06-25)
PROC: GZHZZZZ Group Psychotherapy (ICD-10-PCS; 2018-06-25)
PROC: GZ58ZZZ Individual Psychotherapy, Cognitive-Behavioral (ICD-10-PCS; 2018-06-25)
PROC: GZ56ZZZ Individual Psychotherapy, Supportive (ICD-10-PCS; 2018-06-25)
DX: F10.230 Alcohol dependence with withdrawal, uncomplicated (principal); F32.9 Major depressive disorder, single episode, unspecified; F41.1 Generalized anxiety disorder; F13.20 Sedative, hypnotic or anxiolytic dependence, uncomplicated; G47.00 Insomnia, unspecified; I10 Essential (primary) hypertension; Z91.14 Patient's other noncompliance with medication regimen; N93.9 Abnormal uterine and vaginal bleeding, unspecified

== ENCOUNTER 2018-09-07 19:13 | Inpatient (IN) | payer MEDICAID ==
--- NOTE | 2018-09-07 20:08 | C.PDOC ---
History Of Present Illness Patient is a 28 year old female, with a PMHx of anxiety, depression, bipolar disorder, gastritis, HTN, and appendectomy, who presents c/o desire for detox from alcohol. Patient reports her last drink was a shot of vodka this morning at 12:00. She also reports IVDU of opiates many years ago. Patient denies any withdrawal symptoms, SI/HI, hallucinations, or physical complaints. Time Seen by Provider: 09/07/18 20:08 Chief Complaint (Nursing): Substance Abuse History Per: Patient History/Exam Limitations: no limitations Suicide/Self Injury Attempted (Context): None Associated Symptoms: denies: Suicidal Thoughts, Suicidal Plan Recent travel outside of the [place]: No Additional History Per: Patient Past Medical History Reviewed: Historical Data, Nursing Documentation, Vital Signs Vital Signs: Last Vital Signs Temp 97.9 F 09/07/18 19:34 Pulse 111 H 09/07/18 19:34 Resp 16 09/07/18 19:34 BP 125/88 09/07/18 19:34 Pulse Ox 97 09/07/18 19:34 Primary Care Provider: Ed Brewster - Medical History PMH: Anxiety, Depression, Gastritis, HTN (per pt) Denies: Diabetes, Hepatitis, HIV, Chronic Kidney Disease, Seizures, Sexually Transmitted Disease Surgical History: Appendectomy (Age 12, laparoscopic) - [facility] Procedures DETOXIFICATION SERVICES FOR SUBSTANCE ABUSE TREATMENT (06/25/18) GROUP ROOM SERVICE WAITER FOR SUBSTANCE ABUSE TREATMENT, PSYCHOEDUCATION (06/25/18) GROUP ROOM SERVICE WAITER FOR SUBSTANCE ABUSE, COGNITIVE BEHAVIORAL (06/25/18) GROUP PSYCHOTHERAPY (06/25/18) INDIV PSYCHOTHERAPY FOR SUBSTANCE ABUSE TREATMENT, SUPPORT (06/25/18) INDIV PSYCHOTHERAPY FOR SUBSTANCE ABUSE, COGNITIV BEHAVIORAL (06/25/18) INDIV PSYCHOTHERAPY FOR SUBSTANCE ABUSE, MOTIVATION ENHANCE (05/25/18) INDIV PSYCHOTHERAPY FOR SUBSTANCE ABUSE, PSYCHOEDUCATION (06/25/18) INDIVIDUAL PSYCHOTHERAPY, COGNITIVE-BEHAVIORAL (06/25/18) INDIVIDUAL PSYCHOTHERAPY, SUPPORTIVE (06/25/18) REPAIR LEFT LOWER ARM SKIN, EXTERNAL APPROACH (05/25/18) Family History: States: Unknown Family Hx - Social History Hx Alcohol Use: Yes Hx Substance Use: Yes - Immunization History Hx Tetanus Toxoid Vaccination: Yes (<10 years) Hx Influenza Vaccination: Yes Hx Pneumococcal Vaccination: Yes Review Of Systems Constitutional: Negative for: Fever, Chills, Sweats, Weakness, Malaise Eyes: Negative for: Pain, Vision Change ENT: Negative for: Ear Pain, Ear Discharge, Nose Pain, Nose Discharge, Nose Congestion, Mouth Pain, Mouth Swelling, Throat Pain Cardiovascular: Negative for: Chest Pain, Palpitations, Orthopnea, Edema Respiratory: Negative for: Cough, Shortness of Breath, SOB with Excertion, Pleuritic Pain, Sputum Gastrointestinal: Negative for: Nausea, Vomiting, Abdominal Pain, Diarrhea, Constipation, Melena, Hematochezia, Hematemesis Genitourinary: Negative for: Dysuria, Frequency, Incontinence, Hematuria, Vaginal Discharge, Vaginal Bleeding Musculoskeletal: Negative for: Neck Pain, Shoulder Pain, Arm Pain, Back Pain, Hand Pain, Leg Pain Skin: Negative for: Rash, Lesions, Jaundice, Bruising Neurological: Negative for: Weakness, Numbness, Headache Psych: Negative for: Suicidal ideation, Withdrawal, Other (HI or hallcinations) Physical Exam - Physical Exam Appears: Well, Non-toxic, No Acute Distress, Other (No signs of withdrawal or tremors) Skin: Normal Color, Warm, Dry, No Pale, No Rash Head: Atraumatic, Normacephalic, No Tenderness Eye(s): bilateral: Normal Inspection, PERRL, EOMI Ear(s): Bilateral: Normal Nose: Normal, No Flaring, No Discharge Oral Mucosa: Moist Tongue: No Other (tongue fasciculations) Gingiva: Normal Appearing Throat: Normal, No Erythema, No Exudate, No Drooling, No Mass Neck: Normal, Normal ROM, Trachea Midline, Supple, Other (no meningeal signs) Chest: Symmetrical Cardiovascular: Rhythm Regular, No Friction Rub Respiratory: Normal Breath Sounds, No Rales, No Rhonchi, No Wheezing Gastrointestinal/Abdominal: Soft, No Tenderness, No Mass, No Distention, No Guarding, No Rebound, No Hernia Back: Normal Inspection, No CVA Tenderness, No Vertebral Tenderness Extremity: Normal ROM Extremity: Bilateral: Atraumatic, Hips Non-Tender, Normal Color And Temperature Pulses: Left Dorsalis Pedis: Normal, Right Dorsalis Pedis: Normal Neurological/Psych: Oriented x3, Normal Speech, Normal Cognition Gait: Steady ED Course And Treatment - Laboratory Results Result Diagrams: 09/07/18 20:23 09/07/18 20:23 O2 Sat by Pulse Oximetry: 97 (on RA) Pulse Ox Interpretation: Normal Medical Decision Making Medical Decision Making: Patient is a 28 year old female, with a PMHx of anxiety, depression, bipolar d isorder, gastritis, HTN, and appendectomy, who presents c/o desire for detox from alcohol. Patient reports her last drink was a shot of vodka this morning at 12:00. No signs of withdrawal on exam. NO SI or HI. No other co-ingestion per pt. Denies any physical complaints. No rash noted. Plan: Labs UA 2049 labs, imaging unremarkable no signs of withdrawal on re-exam medically clear pending crisis dispo 2148 no signs of withdrawal on re-exam pt denies any physical complaints appreciate consult w/ Crisis: to kwaku service: etoh, opiate abuse d/o Disposition - Disposition Disposition: HOSPITALIZED Disposition Time: 21:50 Condition: STABLE - Clinical Impression Clinical Impression: Opiate use, Alcohol use disorder - Scribe Statement The provider has reviewed the documentation as recorded by the Boo Sarmiento All medical record entries made by the Tashiibchpi were at my direction and personally dictated by me. I have reviewed the chart and agree that the record accurately reflects my personal performance of the history, physical exam, medical decision making, and the department course for this patient. I have also personally directed, reviewed, and agree with the discharge instructions and disposition.
[2018-09-07 20:27] LABS: BASO % 0.5 % (0.0-2.0); EOS # 0.1 K/uL (0.0-0.7); EOS % 1.3 % (0.0-4.0); HEMOGLOBIN 14.4 g/dL (11.0-16.0); LYMPH # 4.3 K/uL (1.0-4.3); LYMPH % 58.2 % (20.0-40.0); MEAN CELL VOLUME 90.4 fL (81.0-99.0); MEAN CORPUSCULAR HGB CONC 34.3 g/dL (33.0-37.0); MEAN PLATELET VOLUME 7.6 fL (7.2-11.7); MONO # 0.6 K/uL (0.0-0.8); MONO % 7.6 % (0.0-10.0); NEUT # 2.4 K/uL (1.8-7.0); NEUT % 32.4 % (50.0-75.0); NRBC % 0.1 % (0.0-2.0); RBC 4.66 Mil/uL (3.80-5.20); RED CELL DISTRIBUTION WIDTH 14.7 % (11.5-14.5); WHITE BLOOD COUNT 7.3 K/uL (4.8-10.8)
[2018-09-07 20:34] LABS: SQUAMOUS EPITHIAL 1 /hpf (0-5); URINE BILIRUBIN NEGATIVE (NEGATIVE); URINE BLOOD NEGATIVE (NEGATIVE); URINE CLARITY Hazy (Clear); URINE COLOR Yellow (YELLOW); URINE GLUCOSE (UA) NORMAL (Normal); URINE HYALINE CAST 0-2 /lpf (0-2); URINE LEUKOCYTE ESTERASE NEG Leu/uL (Negative); URINE PROTEIN NEGATIVE (NEGATIVE); URINE UROBILINOGEN NORMAL mg/dL (0.2-1.0)
[2018-09-07 20:44] LABS: ACETAMINOPHEN < 10.0 ug/mL (10.0-30.0); BARBITURATES, UR NEGATIVE (NEGATIVE); PHENCYCLIDINE, UR NEGATIVE (NEGATIVE); SALICYLATE < 1.0 mg/dL 1
[2018-09-07 20:48] LABS: ALB/GLOB RATIO 1.4 (1.0-2.1); ALBUMIN 4.4 g/dL (3.5-5.0); ALT/SGPT 33 U/L (9-52); AST/SGOT 42 U/L (14-36); BLOOD UREA NITROGEN 16 mg/dL (7-17); CALCIUM 8.9 mg/dl (8.6-10.4); GFR NON-AFRICAN AMERICAN > 60
[2018-09-07 20:52] LABS: BENZODIAZEPINES, UR POSITIVE (NEGATIVE); OPIATES, UR POSITIVE (NEGATIVE)
--- NOTE | 2018-09-07 22:10 | PCM.BM ---
<Susie Johnson - Last Filed: 09/07/18 22:09> Treatment Plan Problems - Problems identified on initial assessmt Anxiety Related to Substance Abuse Date Initiated: 09/07/18 Time Initiated: 22:09 Assessment reference: NA Status: Active Defensive Coping Date Initiated: 09/07/18 Time Initiated: 22:09 Assessment reference: NA Status: Active Knowledge Deficit:Alcohol Use Date Initiated: 09/07/18 Time Initiated: 22:10 Assessment reference: NA Status: Active Treatment assets and liabiliti Patient Assests: ADL independent, negotiates basic needs, cognitively intact Patient Liabilities: substance abuse - Milieu Protocol Maintain good personal hygiene: daily Encourage regular showers, daily Remind patient to perform daily oral care, daily Assist patient to perform ADL's Conduct patient checks and document Observation sheet: Q15 minutes Maintain personal safety: every shift Educate patient to report safety concerns to staff, every shift Monitor environment for contraband/sharps Medication safety: Monitor for expected outcome, potential side effects: every shift, Assess barriers to learning: every shift, Assess readiness for medication education: every shift <Mkea Lazcano - Last Filed: 09/09/18 12:50> - Diagnosis (1) Alcohol use disorder, severe, dependence Status: Acute Interventions: 09/09/18 12:49 * Assess 7x/week regarding severity of withdrawal * Educate regarding risks, benefits, side effects and alternatives of medications * Use Motivational Interviewing for abstinence * Use CBT for relapse prevention * Medication management for withdrawal symptoms * Encourage medication assisted treatment *
--- NOTE | 2018-09-08 10:01 | PCM.PSYCH ---
Initial Psychiatric Evaluation - Initial Psychiatric Evaluation Type of Admission: Voluntary Legal Status: Capacity Chief Complaint (in patient's own words): "Not good" History of Present Illness and Precipitating Events: Patient is a 28 year-old, female, who is single and without children. 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 She presents to [facility] to detox from alcohol. She admits to drinking 1 bottle of vodka per day for the past 10 years. She also admits to ingesting Percocet 10mg daily for the past two weeks; however, she denies previous history of use. She states that she also takes 1 mg of Xanax per day for the past 10 years, as prescribed by her doctor. She denies any current or past benzodiazepine use disorder. She denies tobacco use or use of any other illicit or prescribed substances. This is her second attempt at detox. She was treated at [facility] detox program in June 2018 and completed rehab at [facility] in July 2018. She states that she was sober following rehab until this past weekend when she relapsed. She states that her longest period of sobriety was for 4 months from December 2017- April 2018. She admits to frequent blackouts but denies history of seizures. She is not interested in going to a rehab program at this time, but is open to going to AA meetings. She denies hallucinations but admits to currently experiencing cold sweats, headache, anxiety, shaking and nausea. She has a history of self-injury and admits to feeling depressed, but denies suicidal ideation. Past Psychiatric History: anxiety, depression, ADHD, bipolar d/o, inpatient psychiatric treatment at [facility] May 2018 due to cutting Family Psych History: denies Past Medical History: denies Past Surgical History: denies Meds: see chart Current Medications: Active Medications Generic Name Dose Route Start Last Admin Trade Name Freq PRN Reason Stop Dose Admin Chlordiazepoxide 25 mg 09/07/18 23:14 09/08/18 03:56 Librium PO 25 mg Q4H PRN Administration Alcohol Withdrawal Chlordiazepoxide 25 mg 09/08/18 12:00 Librium PO 09/13/18 11:59 Q6 MANUELA Taper Clonidine HCl 0.1 mg 09/07/18 22:46 Catapres PO Q8 PRN opiate withdrawal Fluoxetine HCl 20 mg 09/08/18 10:00 Prozac PO DAILY MANUELA Gabapentin 400 mg 09/08/18 10:00 Neurontin PO TID MANUELA Hydroxyzine HCl 50 mg 09/08/18 09:57 Atarax PO Q6H PRN Anxiety Trazodone HCl 50 mg 09/07/18 22:30 Desyrel PO HS PRN Insomnia Past Psychiatric History - Past Psychiatric History Previous Treatment History: Intensive Outpatient Pertinent Medical Hx (Current Medical&Sleep Prob, Allergies): Allergies Allergy/AdvReac Type Severity Reaction Status Date / Time No Known Allergies Allergy Verified 08/23/18 15:07 ALPRAZolam [Xanax] 0.25 mg PO DAILY 09/07/18 ARIPiprazole [Abilify] 10 mg PO DAILY 09/07/18 Atomoxetine HCl 60 mg PO DAILY 09/07/18 FLUoxetine [Fluoxetine HCl] 20 mg PO DAILY 09/07/18 Gabapentin 300 mg PO BID 09/07/18 hydrOXYzine Pamoate [Vistaril] 50 mg PO BID 09/07/18 Review of Systems - Psychiatric Psychiatric: Anhedonia, Anxiety, Depression, Irritability. absent: Hallucinations, Homicidal Ideation, Suicidal Ideation Mental Status Examination - Personal Presentation Personal Presentation: Looks stated age - Affect Affect: Constricted - Motor Activity Motor Activity: Calm - Reliability in Providing Information Reliability in Providing Information: Good - Speech Speech: Organized - Mood Mood: Depressed, Anxious - Formal Thought Process Formal Thought Process: No Impairment - Cognitive Functions Orientation: Person, Place, Situation, Time Attention/Concentration: Easily distracted Estimate of Intelligence: Average Judgement: Intact, as evidence by: Insight regarding need for hospitalization Memory: Recent intact, as evidence by: Ability to recall events of the day, Remote intact, as evidenced by: Abilit to recall sig. life events - Risk Risk: Withdrawal, Diminished functioning - Strength & Assets Inventory Strength & Assets Inventory: Cooperative DSM 5 DX - DSM 5 DSM 5 Diagnosis: - Alcohol withdrawal - Alcohol use d/o- severe - Sedative, hypnotic use d/o severe - Depressive d/o unspecified - BECKA - r/o Borderline personality disorder - r/o PTSD - Recommended/Plan of Treatment Treatment Recommendations and Plan of Treatment: - Taper with Librium - Prozac for depression - Gabapentin for augmentation if needed - As needed medications - All risks, benefits and alternatives of the medications were discussed with the patient, and the patient agreed and understood. - Attend groups and activities. - Supportive therapy and psychoeducation. - OK for abstinence. - CBT for relapse prevention. - Encourage MAT. - Refer to rehab or IOP, and self-help groups. - Teach healthy lifestyle methods, i.e. diet, exercise, meditation. - OK for smoking cessation - Nicotine patch if needed 34 min
--- NOTE | 2018-09-09 12:49 | PCM.PYCHPN ---
Psychiatric Progress Note - Psychiatric Progress Note Patient seen today, length of contact: 17 min Patient Chief Complaint: "So so, anxious" Problems Identified/Issues Discussed: The pt is seen, chart reviewed, case discussed with staff. The pt is compliant with medications and reports no side-effects. Symptoms are improving but needs more time to stabilize. Pt attends groups and activities. Support given, psycho-education provided. After care discussed. Wants to leave early still. Risks discussed Medication Change: Yes (detox changes daily) Medical Record Reviewed: Yes Mental Status Examination - Cognitive Function Orientation: Person, Place, Situation, Time Memory: Intact Attention: WNL Concentration: Poor Association: WNL Fund of Knowledge: WNL - Mood Mood: Depressed, Anxious - Affect Affect: Constricted - Speech Speech: Appropriate - Formal Thought Process Formal Thought Process: No Impairment - Suicidal Ideation Suicidal Ideation: No - Homicidal Ideation Homicidal Ideation: No Goal/Treatment Plan - Goal/Treatment Plan Need for Continued Stay: Discharge may exacerbated symptoms, Severe functional impairment Progress Toward Problem(s) and Goals/Treatment Plan: - Taper with Librium - Prozac for depression - Gabapentin for augmentation if needed - As needed medications - All risks, benefits and alternatives of the medications were discussed with the patient, and the patient agreed and understood. - Attend groups and activities. - Supportive therapy and psychoeducation. - LA for abstinence. - CBT for relapse prevention. - Encourage MAT. - Refer to rehab or IOP, and self-help groups. - Teach healthy lifestyle methods, i.e. diet, exercise, meditation. - LA for smoking cessation - Nicotine patch if needed
--- NOTE | 2018-09-10 11:10 | PCM.PYCHPN ---
Psychiatric Progress Note - Psychiatric Progress Note Patient seen today, length of contact: 18 min Patient Chief Complaint: "Still anxious" Problems Identified/Issues Discussed: The pt is seen, chart reviewed, case discussed with staff. Support and psychoeducation given, CBT and SC used briefly Pt is improving slowly and needs more time, still has ongoing symptoms. No SEs from medications, risks discussed. She then decided to come off Abili bc of "too much weight gain in 2 months" Lamictal started - risks discussed incl. GUILLE Martin is also prescribed ofr outpt (lower dose due to Prozac interaction) After care discussed Medication Change: Yes (detox changes daily) Medical Record Reviewed: Yes Mental Status Examination - Cognitive Function Orientation: Person, Place, Situation, Time Memory: Intact Attention: WNL Concentration: Poor Association: WNL Fund of Knowledge: WNL - Mood Mood: Depressed, Anxious - Affect Affect: Constricted - Speech Speech: Appropriate - Formal Thought Process Formal Thought Process: No Impairment - Suicidal Ideation Suicidal Ideation: No - Homicidal Ideation Homicidal Ideation: No Goal/Treatment Plan - Goal/Treatment Plan Need for Continued Stay: Discharge may exacerbated symptoms, Severe functional impairment Progress Toward Problem(s) and Goals/Treatment Plan: - Taper with Librium - Prozac for depression - Gabapentin for augmentation if needed - As needed medications - All risks, benefits and alternatives of the medications were discussed with the patient, and the patient agreed and understood. - Attend groups and activities. - Supportive therapy and psychoeducation. - SC for abstinence. - CBT for relapse prevention. - Encourage MAT. - Refer to rehab or IOP, and self-help groups. - Teach healthy lifestyle methods, i.e. diet, exercise, meditation. - SC for smoking cessation - Nicotine patch if needed Estimated Date of D/C: 09/11/18
[2018-09-10 20:20] VITALS: TEMP 98.2
[2018-09-11 08:52] VITALS: BP 117/84; PULSE 76; RESP 18; O2SAT 100
--- NOTE | 2018-09-11 09:07 | PCM.PYCHDC ---
Mental Status Examination - Mental Status Examination Orientation: Person, Place, Situation, Time Memory: Intact Mood: Neutral Affect: Constricted Speech: Soft Attention: WNL Concentration: WNL Association: WNL Fund of Knowledge: WNL Formal Thought Process: No Impairment Description of patient's judgement and insight: good, fair Psychotic Thoughts and Behaviors: denies any AVH Suicidal Ideation: No Current Homicidal Ideation?: No Discharge Summary - Discharge Note Reason for Hospitalization: Patient is a 28 year-old, female, who is single and without children. 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 She presents to [facility] to detox from alcohol. She admits to drinking 1 bottle of vodka per day for the past 10 years. She also admits to ingesting Percocet 10mg daily for the past two weeks; however, she denies previous history of use. She states that she also takes 1 mg of Xanax per day for the past 10 years, as prescribed by her doctor. She denies any current or past benzodiazepine use disorder. She denies tobacco use or use of any other illicit or prescribed substances. This is her second attempt at detox. She was treated at [facility] detox program in June 2018 and completed rehab at [facility] in July 2018. She s tates that she was sober following rehab until this past weekend when she relapsed. She states that her longest period of sobriety was for 4 months from December 2017- April 2018. She admits to frequent blackouts but denies history of seizures. She is not interested in going to a rehab program at this time, but is open to going to AA meetings. She denies hallucinations but admits to currently experiencing cold sweats, headache, anxiety, shaking and nausea. She has a history of self-injury and admits to feeling depressed, but denies suicidal ideation. Past Psychiatric History: anxiety, depression, ADHD, bipolar d/o, inpatient psychiatric treatment at [facility] May 2018 due to cutting Family Psych History: denies Past Medical History: denies Past Surgical History: denies Meds: see chart Consultations:: List each consultation separately and include: 1. Reason for request. 2. Findings. 3. Follow-up Summary of Hospital Course include:: 1. Description of specific treatment plan utilized for patients during their course of treatmen. 2. Summarize the time- course for resolution of acute symptoms and/or regressed behaviors. 3. Describe issues identified and worked on during hospitalization. 4. Describe medication utilized. 5. Describe medical problems identified and treated. 6. Reassessment of suicide risk - Final Diagnosis (DSM 5) Condition upon Discharge: STABLE DSM 5: - Alcohol withdrawal - Alcohol use d/o- severe - Sedative, hypnotic use d/o severe - Depressive d/o unspecified - BECKA - r/o Borderline personality disorder - r/o PTSD Disposition: HOME/ ROUTINE Prescriptions/Medication Reconciliation: FLUoxetine [Prozac] 20 mg PO DAILY #30 cap Gabapentin [Neurontin] 400 mg PO TID #90 cap hydrOXYzine HCl [Atarax] 50 mg PO BID PRN #60 tab PRN Reason: Anxiety lamoTRIgine [Lamictal] 25 mg PO BID #60 tab Topiramate [Topamax] 50 mg PO BID #60 tab traZODone [Desyrel] 50 mg PO HS PRN #30 tab PRN Reason: Insomnia - Smoking Cessation Smoking Cessation Medication prescribed: No - Antipsychotic Medications Pt discharged on 2 or more routine antipsychotic medications: No
== END 2018-09-11 09:20 | disposition home or self-care (01) | DRG 751 ==
LOC: C.ER 19:13 → C.7D 21:48 → OBSVTOIN 09-08 09:59
PROVIDERS: ADMIT Psychiatry & Neurology Psychiatry; ATTEND Psychiatry & Neurology Psychiatry
PROC: HZ2ZZZZ Detoxification Services for Substance Abuse Treatment (ICD-10-PCS; principal; 2018-09-08)
PROC: HZ59ZZZ Individual Psychotherapy for Substance Abuse Treatment, Supportive (ICD-10-PCS; 2018-09-08)
PROC: HZ46ZZZ Group Counseling for Substance Abuse Treatment, Psychoeducation (ICD-10-PCS; 2018-09-08)
PROC: GZ3ZZZZ Medication Management (ICD-10-PCS; 2018-09-08)
DX: F10.230 Alcohol dependence with withdrawal, uncomplicated (principal); F13.10 Sedative, hypnotic or anxiolytic abuse, uncomplicated; F41.1 Generalized anxiety disorder; F31.30 Bipolar disorder, current episode depressed, mild or moderate severity, unspecified; F90.9 Attention-deficit hyperactivity disorder, unspecified type; F60.3 Borderline personality disorder; Y90.6 Blood alcohol level of 120-199 mg/100 ml; Z91.5 Personal history of self-harm; I10 Essential (primary) hypertension